=== PATIENT | male | born 1950 | race Caucasian/White ===

== ENCOUNTER 2016-12-07 17:53 | Inpatient (IN) | payer MEDICARE ==
[~2016-12-07] VITALS: Ht 182.9 cm; Wt 117.8 kg
[2016-12-07] VITALS (13 sets, daily range): BP systolic 111–165; BP diastolic 59–89; PULSE 79–112; RESP 13–21; TEMP 98–99; O2SAT 90–99
[~2016-12-07 17:53] MED LIST: ALTA1.256; ASPI325T; CLOP75; CYCL5TAB PO; LIPI40TA; LORT5TAB PO; NIAC500 PO; NORV2.5T11
[2016-12-07] MEDS ORDERED: PANTOPRAZOLE SODIUM 40 MG VIAL ONE (18:16)
[2016-12-07] MEDS ORDERED: PANTOPRAZOLE INJ 80 MG in SODIUM CHLORIDE 0.9% INJ 35 ML IV ONE (18:16)
[2016-12-07] MEDS ORDERED: SODIUM CHLOR 0.9% 1000 ML INJ 1,000 ML IV SCH (18:16)
[2016-12-07] MEDS ORDERED: ONDANSETRON HCL 4 MG/2 ML VIAL ONE (18:16)
[2016-12-07 18:28] LABS: AUTOMATED NEUTROPHIL # 7.2 TH/MM3 (1.8-7.7); BASOPHIL # 0.1 TH/MM3 (0-0.2); BASOPHIL % 0.5 % (0.0-2.0); EOSINOPHIL # 0.1 TH/MM3 (0-0.4); HEMATOCRIT 23.2 % (39.0-51.0); LYMPH % 23.9 % (9.0-44.0); LYMPHOCYTE # 2.7 TH/MM3 (1.0-4.8); MEAN CELL VOLUME 100.6 FL (80.0-100.0); MEAN CORPUSCULAR HEMOGLOBIN 32.4 PG (27.0-34.0); MEAN CORPUSCULAR HGB CONC 32.2 % (32.0-36.0); MONO % 8.8 % (0.0-8.0); NEUT % 65.8 % (16.0-70.0); PLATELET COUNT 186 TH/MM3 (150-450); RED BLOOD COUNT 2.31 MIL/MM3 (4.50-5.90); RED CELL DISTRIBUTION WIDTH 15.5 % (11.6-17.2); WHITE BLOOD COUNT 11.1 TH/MM3 (4.0-11.0)
[2016-12-07 18:30] LABS: HEMO FLAGS DIFF FINAL
[2016-12-07] MEDS ORDERED: ONDANSETRON HCL 4 MG/2 ML VIAL IVP ONE (18:30)
[2016-12-07] MEDS ORDERED: SODIUM CHLORIDE 0.9% FLUSH 10 ML FLUSH IVF PRN (18:30)
[2016-12-07 18:37] LABS: CHLORIDE 97 MEQ/L (98-107); POTASSIUM 3.5 MEQ/L (3.5-5.1); SODIUM (NA) 135 MEQ/L (136-145)
[2016-12-07 18:41] LABS: ANION GAP 10 MEQ/L (5-15); BICARBONATE 27.9 MEQ/L (21.0-32.0)
[2016-12-07 18:42] LABS: BLOOD UREA NITROGEN 30 MG/DL (7-18)
[2016-12-07 18:44] LABS: ALT (GPT) 72 U/L (12-78); AST (GOT) 70 U/L (15-37); GLOMERULAR FILTRATION RATE 104 ML/MIN (>89)
[2016-12-07] MEDS ORDERED: SODIUM CHLOR 0.9% 250 ML INJ 250 ML IV ONE (18:45)
[2016-12-07 18:46] LABS: TOTAL BILIRUBIN ADULT 0.4 MG/DL (0.2-1.0)
[2016-12-07 18:47] LABS: ALKALINE PHOSPHATASE 54 U/L (45-117)
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
[2016-12-07] MEDS: PANTOPRAZOLE INJ 80 MG in SODIUM CHLORIDE 0.9% INJ 100 ML IV SCH (19:08)
[2016-12-07 19:09] LABS: ALCOHOL LESS THAN 3 MG/DL (0-5)
[2016-12-07 19:20] LABS: APTT (PATIENT) 19.8 SEC (24.3-30.1); PROTHROMBIN TIME - PATIENT 10.9 SEC (9.8-11.6)
[2016-12-07 19:24] LABS: CREATINE KINASE 90 U/L (39-308)
[2016-12-07] MEDS ORDERED: POTASSIUM PHOSPHATE INJ 30 MMOL in SODIUM CHLOR 0.9% 250 ML INJ 250 ML IV PRN (19:30)
[2016-12-07] MEDS ORDERED: SODIUM PHOSPHATE INJ 30 MMOL in SODIUM CHLOR 0.9% 250 ML INJ 240 ML IV PRN (19:30)
[2016-12-07] MEDS ORDERED: SODIUM CHLORIDE 0.9% FLUSH 10 ML FLUSH IV FLUSH PRN (19:30)
[2016-12-07] MEDS ORDERED: SENNOSIDES 8.6 MG TAB PO PRN (19:30)
[2016-12-07] MEDS ORDERED: POTASSIUM PHOSPHATE MONOBASIC 500 MG TAB PO PRN (19:30)
[2016-12-07] MEDS ORDERED: POTASSIUM CHLOR 40 MEQ PREMIX 100 ML IV PRN ×2 (19:30)
[2016-12-07] MEDS ORDERED: MAGNESIUM SULFATE INJ 4 GM in SODIUM CHLORIDE 0.9% INJ 92 ML IV PRN (19:30)
[2016-12-07] MEDS ORDERED: CHLORHEXIDINE GLUCONATE 2 % 1 PACK (2 CLOTHS) TOP PRN (19:30)
[2016-12-07] MEDS ORDERED: MAGNESIUM SULFATE INJ 2 GM in SODIUM CHLORIDE 0.9% INJ 96 ML IV PRN (19:30)
[2016-12-07] MEDS ORDERED: POTASSIUM CHLORIDE 25 MEQ EFFERVESCENT TAB PO PRN (19:30)
[2016-12-07] MEDS ORDERED: MISCELLANEOUS NURSING INFORMATION XX SCH (19:30)
[2016-12-07] MEDS ORDERED: POTASSIUM PHOSPHATE MONOBASIC 500 MG TAB PO/TUBE PRN (19:30)
[2016-12-07] MEDS ORDERED: MAGNESIUM OXIDE 400 MG TAB PO PRN (19:30)
[2016-12-07] MEDS ORDERED: GLUCAGON 1 MG/ML VIAL OTHER PRN (19:45)
[2016-12-07] MEDS ORDERED: DEXTROSE 50% IN WATER 50 ML VIAL(D50) IV PRN (19:45)
[2016-12-07] MEDS ORDERED: ACETAMINOPHEN 325 MG TAB PO PRN (20:00)
[2016-12-07] MEDS ORDERED: LACTULOSE SYRUP 20 GM/30 ML CUP PO PRN (20:00)
[2016-12-07] MEDS ORDERED: ONDANSETRON HCL 4 MG/2 ML VIAL IV PUSH PRN (20:00)
[2016-12-07] MEDS ORDERED: BISACODYL 10 MG SUPP RECTAL PRN (20:00)
[2016-12-07] MEDS ORDERED: MULTTAB67 PO (20:00)
[2016-12-07] MEDS ORDERED: ASPI81CH CHEW (20:00)
[2016-12-07] MEDS ORDERED: AMLO5 PO (20:00)
[2016-12-07] MEDS ORDERED: MAGNESIUM HYDROXIDE SUSP 30 ML CUP PO PRN (20:00)
[2016-12-07] MEDS ORDERED: RESP: ALBUTEROL 2.5 MG/IPRATROPIUM 0.5 MG NEB (PRN) INH (20:00)
[2016-12-07] MEDS ORDERED: LISI-519 PO (20:00)
[2016-12-07] MEDS ORDERED: LIPI40TA PO (20:00)
[2016-12-07] MEDS ORDERED: CELE1CAP8 PO (20:00)
[2016-12-07] MEDS ORDERED: POTASSIUM CHLOR 20 MEQ PREMIX 100 ML IV PRN (20:00)
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
[2016-12-07] MEDS: INSULIN ASPART SUPPLEMENTAL SCALE SQ SCH (21:00)
[2016-12-07] MEDS: DOCUSATE SODIUM 50 MG/SENNA 8.6 MG TAB PO SCH (21:00)
[2016-12-07] MEDS ORDERED: HYDROmorphone HCL PF 1 MG/ML VIAL IV PUSH PRN (21:00)
[2016-12-07] MEDS: SODIUM CHLOR 0.9% 1000 ML INJ 1,000 ML IV SCH (21:25)
[2016-12-07] MEDS: SODIUM CHLORIDE 0.9% FLUSH 10 ML FLUSH IV FLUSH SCH (21:26)
[2016-12-07 22:54] LABS: HEMATOCRIT 23.1 % (39.0-51.0); REVIEW FLAG FINAL
[2016-12-08] VITALS (17 sets, daily range): BP systolic 112–134; BP diastolic 55–72; PULSE 70–90; RESP 16–22; TEMP 98.4–98.9; O2SAT 93–99
[2016-12-08] MEDS: CHLORHEXIDINE GLUCONATE 2 % 1 PACK (2 CLOTHS) TOP SCH (03:26)
[2016-12-08] MEDS: SODIUM CHLOR 0.9% 1000 ML INJ 1,000 ML IV SCH ×3 (04:14→21:07)
[2016-12-08] MEDS: PANTOPRAZOLE INJ 80 MG in SODIUM CHLORIDE 0.9% INJ 100 ML IV SCH ×2 (06:04→14:16)
[2016-12-08 06:15] LABS: AUTOMATED NEUTROPHIL # 4.7 TH/MM3 (1.8-7.7); BASOPHIL % 0.4 % (0.0-2.0); EOSINOPHIL % 0.6 % (0.0-4.0); HEMATOCRIT 25.1 % (39.0-51.0); LYMPH % 16.1 % (9.0-44.0); MEAN CELL VOLUME 95.9 FL (80.0-100.0); MEAN CORPUSCULAR HEMOGLOBIN 32.5 PG (27.0-34.0); MEAN CORPUSCULAR HGB CONC 33.9 % (32.0-36.0); MONO % 9.7 % (0.0-8.0); NEUT % 73.2 % (16.0-70.0); PLATELET COUNT 98 TH/MM3 (150-450); RED BLOOD COUNT 2.61 MIL/MM3 (4.50-5.90); RED CELL DISTRIBUTION WIDTH 17.8 % (11.6-17.2); WHITE BLOOD COUNT 6.4 TH/MM3 (4.0-11.0)
[2016-12-08 06:24] LABS: ALT (GPT) 52 U/L (12-78); ANION GAP 8 MEQ/L (5-15); AST (GOT) 39 U/L (15-37); BICARBONATE 23.8 MEQ/L (21.0-32.0); BLOOD UREA NITROGEN 20 MG/DL (7-18); CHLORIDE 108 MEQ/L (98-107); GLOMERULAR FILTRATION RATE 162 ML/MIN (>89); MAGNESIUM 2.2 MG/DL (1.5-2.5); POTASSIUM 3.2 MEQ/L (3.5-5.1); SODIUM (NA) 140 MEQ/L (136-145)
[2016-12-08 06:25] LABS: HEMO FLAGS AUTO DIFF
[2016-12-08 06:28] LABS: ALKALINE PHOSPHATASE 47 U/L (45-117); TOTAL BILIRUBIN ADULT 1.3 MG/DL (0.2-1.0)
[2016-12-08] MEDS: POTASSIUM CHLOR 20 MEQ PREMIX 100 ML IV PRN ×3 (06:43→17:50)
[2016-12-08] MEDS: INSULIN ASPART SUPPLEMENTAL SCALE SQ SCH ×4 (07:00→21:00)
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
[2016-12-08] MEDS ORDERED: LABETALOL HCL 100 MG/20 ML VIAL IV PUSH PRN (08:30)
[2016-12-08] MEDS ORDERED: LORazepam 2 MG/ML VIAL IV PUSH PRN ×5 (09:00→16:15)
[2016-12-08] MEDS: DOCUSATE SODIUM 50 MG/SENNA 8.6 MG TAB PO SCH ×2 (09:00→20:19)
[2016-12-08] MEDS: SODIUM CHLORIDE 0.9% FLUSH 10 ML FLUSH IV FLUSH SCH ×2 (09:00→21:07)
[2016-12-08 11:17] LABS: OVALOCYTES 1+ (NORMAL); PLATELET ESTIMATE SMEAR LOW (NORMAL); PLATELET MORPHOLOGY NORMAL (NORMAL); POLYCHROMASIA 2.1 % (0.0-1.9); SCAN/DIFF AUTO DIFF CONFIRMED
--- NOTE | 2016-12-08 11:24 | EKG ---
Date Performed: 12/07/2016 Time Performed: 19:54:52 PTAGE: 66 years EKG: Sinus rhythm NORMAL ECG Compared to prior tracing no significant change PREVIOUS TRACING : 12/07/2016 18.49 DOCTOR: Tammy Beaver Interpretating Date/Time 12/08/2016 11:21:51
--- NOTE | 2016-12-08 11:24 | EKG ---
Date Performed: 12/07/2016 Time Performed: 18:49:49 PTAGE: 66 years EKG: Sinus rhythm NONSPECIFIC T-WAVE ABNORMALITY BORDERLINE ECG Compared to prior tracing no significant change PREVIOUS TRACING : 12/22/2006 08.58 DOCTOR: Tammy Beaver Interpretating Date/Time 12/08/2016 11:21:43
[2016-12-08] MEDS ORDERED: PROPOFOL 200 MG/20 ML AMP IV ONE (11:56)
--- NOTE | 2016-12-08 12:05 | GIPROC ---
[facility] [address] [facility]. [facility], [id number] EGD PROCEDURE REPORT EXAM DATE: 12/08/2016 PATIENT NAME: Heather Cooney MR #: [id number] BIRTHDATE: 1950 ATTENDING: Estela Gray MD ORDER #: [id number] [facility] MANAGER: Rogelio Dhillon and Napoleon Bragg STATUS: inpatient INDICATIONS: The patient is a 66 yr old male here for an EGD due to acute post hemorrhagic anemia and hematemesis PROCEDURE PERFORMED: EGD w/ biopsy MEDICATIONS: None and Per Anesthesia. TOPICAL ANESTHETIC: CONSENT: The patient understands the risks and benefits of the procedure and understands that these risks include, but are not limited to: sedation, allergic reaction, infection, perforation and/or bleeding. Alternative means of evaluation and treatment include, among others: physical exam, x-rays, and/or surgical intervention. The patient elects to proceed with this endoscopic procedure. medical equipment was checked for proper function. Hand hygiene and appropriate measures for infection prevention was taken. After the risks, benefits and alternatives of the procedure were thoroughly explained, Informed consent was verified, confirmed and timeout was successfully executed by the treatment team. The patient was anesthetized with topical anesthesia and the Pentax [id number] endoscope was introduced through the mouth and advanced to the second portion of the duodenum. Retroflexed views revealed no abnormalities The gastroscope was then slowly withdrawn and removed. ESOPHAGUS: There was LA Class A esophagitis noted. A biopsy was performed using cold forceps. Sample sent for histology. STOMACH: A single non-bleeding, round, shallow and clean-based ulcer ranging between 3-5 mm in size was found in the gastric antrum. Biopsies were taken at edge of the ulcer. DUODENUM: A single non-bleeding, deep, round and clean-based ulcer ranging between 3-7mm in size was found in the duodenal bulb. ADVERSE EVENTS: There were no complications. IMPRESSIONS: 1. There was LA Class A esophagitis noted; biopsy was performed 2. Single ulcer ranging between 3-5 mm in size was found in the gastric antrum; biopsies were taken 3. Single ulcer ranging between 3-7mm in size was found in the duodenal bulb 4. Retroflexed views revealed no abnormalities RECOMMENDATIONS: 1. Await biopsy results. Biopsy results will not be ready for 7-10 days. If you don't hear from us in two weeks, call our office for biopsy results. 2. Anti-reflux regimen 3. Continue PPI 4. Avoid NSAIDS PATIENT CONDITION: stable DISPOSITION: Inpatient REPEAT EXAM: Return 2 months EGD pending biopsy results Estela Gray MD eSigned: Estela Gray MD 12/08/2016 12:04 PM cc: PATIENT NAME: Heather Cooney MR#: [id number]
[2016-12-08] MEDS ORDERED: DO NOT ADM ANY ANTICOAGULANT DRUGS PRN (12:15)
--- NOTE | 2016-12-08 14:15 | RADRPT ---
EXAM DATE/TIME: 12/08/2016 13:29 [place] COMPARISON: No previous studies available for comparison. EXTERNAL COMPARISON : [facility], US KIDNEY-BILATERAL, March 26, 2012 INDICATIONS : Increased lab values. MEDICAL HISTORY : Hypercholesterolemia. Carcinoma, prostate. Hypertension. Coronary artery disease. Ulcer. Chronic back pain. Radiation therapy. Measles. Blood transfusion. SURGICAL HISTORY : Coronary artery stent. Right thumb surgery. ENCOUNTER: Initial ACUITY: 1 day PAIN SCORE: 1/10 LOCATION: Bilateral upper quadrant MEASUREMENTS: LIVER: 20.6 cm length COMMON DUCT: Non-visualized RIGHT KIDNEY: 11.5 x 5.4 x 6.0 cm LEFT KIDNEY: 12.6 x 4.4 x 7.2 cm SPLEEN: 11.8 cm length AORTA: 2.2cm maximal FINDINGS: LIVER: Mild fatty infiltration. COMMON DUCT: Is not visualized. GALLBLADDER: Contains no stones, demonstrates no wall thickening or pericholecystic fluid. PANCREAS: Poorly seen RIGHT KIDNEY: No hydronephrosis, stone or mass. LEFT KIDNEY: No hydronephrosis, stone or mass. Previous described cystic area on the left is not visualized. SPLEEN: No focal lesion. AORTA: Non aneurysmal. IVC: Within normal limits. CONCLUSION: Fatty infiltration. There is no hepatic biliary duct dilatation. Common duct is not visualized. Ra Jimenez MD FACR on December 08, 2016 at 14:11 Board Certified Radiologist. This report was verified electronically.
[2016-12-08 15:02] LABS: HEMATOCRIT 25.7 % (39.0-51.0)
[2016-12-08] MEDS ORDERED: FLUMAZENIL 0.5 MG/5 ML VIAL IV PUSH PRN (16:15)
[2016-12-08] MEDS ORDERED: LORazepam 1 MG TAB PO PRN (16:15)
[2016-12-08] MEDS ORDERED: LORazepam 2 MG/ML VIAL IV PUSH ONE (16:15)
[2016-12-08] MEDS ORDERED: LORazepam 2 MG TAB PO PRN (16:15)
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
[2016-12-08 23:13] LABS: HEMATOCRIT 26.1 % (39.0-51.0); REVIEW FLAG FINAL
[2016-12-09] VITALS: BP 118/64; PULSE 89; RESP 14; TEMP 98.6; O2SAT 98
[2016-12-09] MEDS: PANTOPRAZOLE INJ 80 MG in SODIUM CHLORIDE 0.9% INJ 100 ML IV SCH (01:23)
[2016-12-09 02:00] VITALS: PULSE 78
[2016-12-09 04:00] VITALS: BP 121/61; PULSE 74; RESP 12; TEMP 98.4; O2SAT 97
[2016-12-09] MEDS: CHLORHEXIDINE GLUCONATE 2 % 1 PACK (2 CLOTHS) TOP SCH (04:00)
[2016-12-09] MEDS: SODIUM CHLOR 0.9% 1000 ML INJ 1,000 ML IV SCH (04:16)
[2016-12-09 05:52] LABS: REVIEW FLAG FINAL
[2016-12-09 06:00] VITALS: PULSE 66
[2016-12-09] MEDS: INSULIN ASPART SUPPLEMENTAL SCALE SQ SCH (07:00)
--- NOTE | 2016-12-09 07:47 | HHI.GIFU ---
Subjective Remarks Resting in bed. Passing black tarry stools, but no hematemesis or greg red blood. No abdominal pain. States he has not had anything to eat. (Shantal Redding) Objective Vitals I&O Vital Signs Date Time Temp Pulse Resp B/P (MAP) Pulse Ox O2 Delivery O2 Flow Rate FiO2 12/09/16 06:00 66 12/09/16 04:00 74 12/09/16 04:00 98.4 74 12 121/61 (81) 97 12/09/16 02:00 78 12/09/16 00:00 98.6 89 14 118/64 (82) 98 12/09/16 00:00 89 12/08/16 22:00 82 12/08/16 20:00 98.4 86 19 133/65 (87) 97 12/08/16 20:00 86 12/08/16 19:06 96 Nasal Cannula 2.00 12/08/16 19:00 96 Nasal Cannula 2.00 12/08/16 18:00 78 12/08/16 16:00 76 12/08/16 16:00 98.7 76 18 129/63 (85) 96 12/08/16 14:00 70 12/08/16 12:15 74 15 132/69 (90) 95 Nasal Cannula 2 12/08/16 12:07 98.4 78 21 130/72 (91) 95 Nasal Cannula 2 12/08/16 12:00 98.9 90 21 130/72 (91) 99 12/08/16 12:00 90 12/08/16 10:00 76 12/08/16 09:36 98 Nasal Cannula 1.00 12/08/16 08:00 76 12/08/16 08:00 98.7 76 17 134/60 (84) 96 I/O 12/08/16 12/08/16 12/08/16 12/09/16 12/09/16 12/09/16 07:00 15:00 23:00 07:00 15:00 23:00 Intake Total 2186 ml 1999 ml 1872 ml Output Total 2000 ml 2950 ml 2275 ml Balance 186 ml -951 ml -403 ml Intake Oral 240 ml 240 ml IV Total 1186 ml 1759 ml 1632 ml Packed Cells 1000 ml Output Urine Total 2000 ml 2950 ml 2275 ml # Bowel Movements 0 0 1 Laboratory Laboratory Tests Test 12/08/16 13:20 12/08/16 22:27 12/09/16 05:00 Hemoglobin 8.9 8.9 9.5 Hematocrit 25.7 26.1 28.0 Potassium Level 3.7 Imaging Last Impressions Abdomen Ultrasound 12/08/16 0000 Signed Impressions: Service Date/Time: Thursday, December 08, 2016 13:29 - CONCLUSION: Fatty infiltration. There is no hepatic biliary duct dilatation. Common duct is not visualized. Ra Jimenez MD FACR Physical Exam HEENT: Normocephalic; atraumatic; no jaundice. CHEST: CTA CARDIAC: RRR ABDOMEN: Soft, nondistended, nontender; no hepatosplenomegaly; bowel sounds are present in all four quadrants. EXTREMITIES: No clubbing, cyanosis, or edema. SKIN: Normal; no rash; no jaundice. MEDICAL CHARGE ENTRY SPECIALIST: No focal deficits; alert and oriented times three. (Shantal Redding) Assessment and Plan Plan ASSESSMENT: - Upper GIB. S/P EGD (12/08/16)---> 1. There was LA Class A esophagitis noted; biopsy was performed, 2. Single ulcer ranging between 3-5 mm in size was found in the gastric antrum; biopsies were taken 3. Single ulcer ranging between 3-7mm in size was found in the duodenal bulb 4. Retroflexed views revealed no abnormalities. (+) ETOH abuse. Celebrex at home. Protonix. Passing black tarry stool, no greg red blood and no hematemesis. C - Anemia, blood loss. S/P 3 units PRBC. 9.5/28.0. - Gastric and duodenal bulb ulcer. PPI. - Elevated LFTs. US Liver (12/08/16)---> Fatty infiltration. There is no hepatic biliary duct dilatation. Common duct is not visualized. Drinks 3-5 cocktails per day. T. Bili 1.3, AST 39, ALT 52, Alk Phosph 47. - CAD, hyopkalemia, hyperglycemia per CCM. PLAN: - Heart healthy diet. - D/C Protonix Gtt - Protonix 40mg po BID - No NSAIDs - No ETOH - If tolerates diet and no active GI bleeding, okay to d/c home from GI standpoint later today - FU SANDRA 2 weeks - Rpt. EGD 2 months - Pt seen and examined by Dr. Ybarra and myself and this note is written on her behalf (Shantal Redding) Shantal Redding Dec 09, 2016 07:47 Liz Ybarra MD Dec 11, 2016 05:36
[2016-12-09 08:00] VITALS: PULSE 81
--- NOTE | 2016-12-09 08:36 | HHI.PR ---
Subjective Remarks Follow-up upper GI bleed 12/09/16-patient seen and examined, he had one black stool but no hematemesis. H&H stable. Patient wants to go home Objective Vitals Vital Signs Date Time Temp Pulse Resp B/P (MAP) Pulse Ox O2 Delivery O2 Flow Rate FiO2 12/09/16 06:00 66 12/09/16 04:00 74 12/09/16 04:00 98.4 74 12 121/61 (81) 97 12/09/16 02:00 78 12/09/16 00:00 98.6 89 14 118/64 (82) 98 12/09/16 00:00 89 12/08/16 22:00 82 12/08/16 20:00 98.4 86 19 133/65 (87) 97 12/08/16 20:00 86 12/08/16 19:06 96 Nasal Cannula 2.00 12/08/16 19:00 96 Nasal Cannula 2.00 12/08/16 18:00 78 12/08/16 16:00 76 12/08/16 16:00 98.7 76 18 129/63 (85) 96 12/08/16 14:00 70 12/08/16 12:15 74 15 132/69 (90) 95 Nasal Cannula 2 12/08/16 12:07 98.4 78 21 130/72 (91) 95 Nasal Cannula 2 12/08/16 12:00 98.9 90 21 130/72 (91) 99 12/08/16 12:00 90 12/08/16 10:00 76 12/08/16 09:36 98 Nasal Cannula 1.00 I/O 12/08/16 12/08/16 12/08/16 12/09/16 12/09/16 12/09/16 07:00 15:00 23:00 07:00 15:00 23:00 Intake Total 2186 ml 1999 ml 1872 ml Output Total 2000 ml 2950 ml 2275 ml Balance 186 ml -951 ml -403 ml Intake Oral 240 ml 240 ml IV Total 1186 ml 1759 ml 1632 ml Packed Cells 1000 ml Output Urine Total 2000 ml 2950 ml 2275 ml # Bowel Movements 0 0 1 Result Diagram: 12/09/16 0500 12/09/16 0500 Imaging Last Impressions Abdomen Ultrasound 12/08/16 0000 Signed Impressions: Service Date/Time: Thursday, December 08, 2016 13:29 - CONCLUSION: Fatty infiltration. There is no hepatic biliary duct dilatation. Common duct is not visualized. Ra Jimenez MD FACR Objective Remarks GENERAL: NAD SKIN: Warm and dry. HEAD: Normocephalic. EYES: No scleral icterus. No injection or drainage. NECK: Supple, trachea midline. No JVD or lymphadenopathy. CARDIOVASCULAR: Regular rate and rhythm without murmurs, gallops, or rubs. RESPIRATORY: Breath sounds equal bilaterally. No accessory muscle use. GASTROINTESTINAL: Abdomen soft, non-tender, nondistended. MUSCULOSKELETAL: No cyanosis, or edema. BACK: Nontender without obvious deformity. No CVA tenderness. A/P Problem List: (1) GI bleed ICD Code: K92.2 - Gastrointestinal hemorrhage, unspecified Status: Acute (2) Symptomatic anemia ICD Code: D64.9 - Anemia, unspecified Status: Resolved (3) Syncope ICD Code: R55 - Syncope and collapse Status: Resolved Assessment and Plan 66-year-old man with Symptomatic anemia Transfuse 3 units packed red blood cell H&H stable Upper GI bleed Appreciate input from gastroenterology Status post EGD, biopsy report pending Currently on Protonix drip, which changed to by mouth Protonix 40 mg twice a day Advise on alcohol cessation, and avoid NSAIDs Alcohol abuse Chronic back pain Chronic pain syndrome Syncope-resolved Neurochecks per ICU protocol Monitor for signs of alcohol withdrawal-patient reports drinking 4-5 bourbons/ night sometimes +/- beers Ativan 1 mg every 3 hours when necessary for agitation Seizure precautions Dilaudid 1 mg every 3 hours when necessary for pain scale 7-10 Coronary artery disease Status post cardiac stent placement 2006 S/P postcardiac catheterization 04/15 2 procedures Hemorrhagic shock Hypotension-resolved 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 auditor tax Monitor serial troponin levels 12/07 EKG normal sinus rhythm QT interval 377 Prophylaxis: GI Prophylaxis Protonix infusion DVT Prophylaxis -- SCDs No pharmacological DVT prophylaxis in the setting of bleeding Problem Qualifiers (1) GI bleed: Qualified Codes: K92.1 - Melena (2) Syncope: Qualified Codes: R55 - Syncope and collapse Frandy Chappell MD Dec 09, 2016 08:36
[2016-12-09] MEDS ORDERED: PROT40TA PO (08:37)
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
[2016-12-09] MEDS: SODIUM CHLORIDE 0.9% FLUSH 10 ML FLUSH IV FLUSH SCH (08:44)
[2016-12-09] MEDS: DOCUSATE SODIUM 50 MG/SENNA 8.6 MG TAB PO SCH (08:44)
[2016-12-09] MEDS ORDERED: PANTOPRAZOLE SOD 40 MG DELAYED RELEASE TAB PO SCH (09:00)
[2016-12-09 10:48] LABS: HEMOGLOBIN A1a 1.1 %; HEMOGLOBIN A1b 1.6 %; HEMOGLOBIN Ao 85.4 %; HEMOGLOBIN P3 3.7 %
== END 2016-12-09 10:48 | disposition home or self-care (01) | DRG 378 ==
LOC: PHED 17:53 → PHEDA 19:18 → N03B 20:50
PROVIDERS: ADMIT Hospitalist; ATTEND Hospitalist
PROC: 30233N1 Transfusion of Nonautologous Red Blood Cells into Peripheral Vein, Percutaneous Approach (ICD-10-PCS; principal; 2016-12-07)
PROC: 0DB68ZX Excision of Stomach, Via Natural or Artificial Opening Endoscopic, Diagnostic (ICD-10-PCS; 2016-12-08)
PROC: 0DB58ZX Excision of Esophagus, Via Natural or Artificial Opening Endoscopic, Diagnostic (ICD-10-PCS; 2016-12-08)
DX: K92.2 Gastrointestinal hemorrhage, unspecified (principal); E44.1 Mild protein-calorie malnutrition; K76.0 Fatty (change of) liver, not elsewhere classified; D62 Acute posthemorrhagic anemia; K25.9 Gastric ulcer, unspecified as acute or chronic, without hemorrhage or perforation; K26.9 Duodenal ulcer, unspecified as acute or chronic, without hemorrhage or perforation; K20.9 Esophagitis, unspecified; R55 Syncope and collapse; M54.9 Dorsalgia, unspecified; G89.4 Chronic pain syndrome; I25.10 Atherosclerotic heart disease of native coronary artery without angina pectoris; Z95.5 Presence of coronary angioplasty implant and graft; E66.9 Obesity, unspecified; Z68.35 Body mass index [BMI] 35.0-35.9, adult; R73.9 Hyperglycemia, unspecified; F10.10 Alcohol abuse, uncomplicated; Z79.82 Long term (current) use of aspirin; Z79.02 Long term (current) use of antithrombotics/antiplatelets; Z79.1 Long term (current) use of non-steroidal anti-inflammatories (NSAID); E78.00 Pure hypercholesterolemia, unspecified; I10 Essential (primary) hypertension; E87.6 Hypokalemia; Z87.891 Personal history of nicotine dependence; Z87.11 Personal history of peptic ulcer disease; Z85.46 Personal history of malignant neoplasm of prostate
CPT/HCPCS: 36430; 76700; 80053; 80307; 82550; 82948; 83036; 83690; 83735; 83880; 84100; 84132; 84484; 85014; 85018; 85025; 85384; 85610; 85730; 86850; 86900; 86901; 86920; 87641; 88305; 88312; 93005; 96374; 96375; 96376; C9113; J2405; J3480; J7030; J7050; P9016